=== PATIENT | male | born 1955 | race African-American/Black ===

== ENCOUNTER 2022-05-28 12:33 | Emergency (ER) | payer OTHER ==
[~2022-05-28] VITALS: Ht 185.4 cm; Wt 91.0 kg
[2022-05-28 12:59] VITALS: BP 115/85
[2022-05-28] MEDS ORDERED: HALO2TAB2 MT (16:24)
== END 2022-05-28 16:36 | disposition home or self-care (01) ==
LOC: ER 12:33
DX: Z76.0 Encounter for issue of repeat prescription (principal); F31.9 Bipolar disorder, unspecified; F41.9 Anxiety disorder, unspecified; R20.9 Unspecified disturbances of skin sensation; Z88.6 Allergy status to analgesic agent
CPT/HCPCS: 99281